=== PATIENT | female | born 1950 | race Caucasian/White ===

== ENCOUNTER → 2018-10-19 15:54 | Outpatient (CLI) | payer MEDICARE, OTHER, SELFPAY ==
--- NOTE | 2018-10-19 16:01 | DI.US.S_ITS ---
PROCEDURE: US ARTERIAL DUPLEX LE RT INDICATIONS: RIGHT CALF PAIN, CLAUDICATION RIGHT LOWER LEG PAIN TECHNIQUE: Color and pulse Doppler interrogation was performed of the right lower extremity arterial system, with image documentation. COMPARISON: None. FINDINGS: Common femoral artery: 84 cm/sec, with triphasic flow. Deep femoral artery: 135 cm/sec, with triphasic flow. Proximal superficial femoral artery: 57 cm/sec, with triphasic flow. Mid superficial femoral artery: 33 cm/sec, with monophasic flow. Distal superficial femoral artery: 347 cm/sec, with monophasic flow. Popliteal artery: 21-38 cm/sec, with monophasic flow. Posterior tibial artery: 27-46 cm/sec, with monophasic flow. Anterior tibial artery/dorsalis pedis: 13-21 cm/sec, with monophasic flow. Hahn-scale imaging description: Mixed soft and hard plaques throughout. There is a short segment of absence of color flow in the distal superficial femoral artery consistent with occlusion. IMPRESSION: 1. Suspect a short segmental occlusion of distal superficial femoral artery. CT or MRI is suggested for further evaluation. 2. Mixed soft and hard plaques throughout right lower extremity arteries. Dictated by: Marcia Hoover M.D. on 10/19/2018 at 23:04 Approved by: Marcia Hoover M.D. on 10/21/2018 at 22:43
== END ==
PROVIDERS: Family Provider Ophthalmology; PCP Family Medicine; Visit Provider Physician Assistant
DX: M79.661 Pain in right lower leg (principal); I70.211 Atherosclerosis of native arteries of extremities with intermittent claudication, right leg
CPT/HCPCS: 93926

== ENCOUNTER → 2019-11-16 11:26 | Outpatient (CLI) | payer MEDICARE, OTHER, SELFPAY ==
--- NOTE | 2019-11-16 | DI.MRI.S_ITS ---
PROCEDURE: MR LUMBAR SPINE WO CON INDICATIONS: Sciatica, right side TECHNIQUE: Noncontrast sagittal T1 spin echo and T2 fast echo, sagittal STIR, axial T1 and T2 fast spin echo through the lumbar spine. In cases with scoliosis, additional coronal T2 fast spin echo may be performed. COMPARISON: None. FINDINGS: Image quality: Excellent. Alignment and Curvature: There is trace anterolisthesis of L4 on L5, L5 on S1. Bone Marrow: Marrow is of normal overall signal. No acute vertebral body compression fractures. Increased T1 and T2 signal is present most prominently within the L3 and L4 vertebral bodies suggestive of hemangiomas. Spinal Cord: Conus medullaris terminates at the L1 level. Visualized cord demonstrates normal signal and size. Paraspinous Soft Tissues: No paravertebral masses. Discs: [id number] desiccation is present throughout the lumbar spine. L1-L2: Minimal disc bulge without spinal stenosis or foraminal narrowing. L2-L3: Mild disc bulge without spinal stenosis or foraminal narrowing. Minimal epidural lipomatosis. L3-L4: Mild disc bulge with minimal spinal stenosis. No foraminal narrowing. Minimal epidural lipomatosis. Mild facet and ligamentum flavum hypertrophy are present. L4-L5: Mild disc bulge with minimal canal narrowing. Minimal to mild right foraminal narrowing with facet and ligamentum flavum hypertrophy. Minimal epidural lipomatosis. L5-S1: Mild disc bulge without spinal stenosis. Mild right foraminal narrowing with facet hypertrophy. IMPRESSION: 1. Multilevel disc bulges. 2. Multilevel minimal spinal stenosis. 3. Multilevel minimal to mild foraminal narrowing most notable at L4-5 and L5-S1. Dictated by: Enedina Ding M.D. on 11/18/2019 at 11:44 Approved by: Enedina Ding M.D. on 11/18/2019 at 12:33
== END ==
PROVIDERS: Family Provider Ophthalmology; PCP Family Medicine; Referring Provider Family Medicine; Visit Provider Family Medicine
DX: M51.16 Intervertebral disc disorders with radiculopathy, lumbar region (principal); M51.17 Intervertebral disc disorders with radiculopathy, lumbosacral region; M48.061 Spinal stenosis, lumbar region without neurogenic claudication; M48.07 Spinal stenosis, lumbosacral region
CPT/HCPCS: 72148

== ENCOUNTER → 2020-08-25 09:48 | Outpatient (CLI) | payer MEDICARE, OTHER, SELFPAY ==
[2020-08-25 20:08] LABS: Add Manual Diff / Slide Review NO; Basophils Absolute Auto 100 /uL (0-100); Basophils Percent Auto 1.1 % (0-2); Eosinophils Absolute Auto 100 /uL (0-450); Eosinophils Percent Auto 1.5 % (2-4); Hematocrit 43.1 % (36-46); Hemoglobin 14.2 g/dL (12.0-16.0); Lymphocytes Absolute Auto 2000 /uL (1100-4500); Lymphocytes Percent Auto 23.4 % (25-40); Mean Corpuscular HGB Conc 32.9 % (30-36); Mean Corpuscular Hemoglobin 28.5 PG (26-34); Mean Corpuscular Volume 86.7 fL (80-100); Monocytes Absolute Auto 500 /uL (0-900); Neutrophils Absolute Auto 5900 /uL (1500-7000); Platelet Count 252 X10^3/uL (150-400); Red Blood Cell Count 4.97 X10^6/uL (4.0-5.2); Red Cell Distribution Width 14.9 % (11.6-14.8); White Blood Cell Count 8.7 X10^3/uL (4.5-11.0)
[2020-08-25 20:24] LABS: Alanine Aminotransferase 11 IU/L (<35); Albumin 4.3 g/dL (3.5-5.0); Albumin Globulin Ratio 1.7 (1.0-2.8); Alkaline Phosphatase 132 U/L (38-126); Aspartate Aminotransferase 19 IU/L (14-36); BUN Creatinine Ratio 17.9 (6-22); Bilirubin Total 0.6 mg/dL (0.2-1.3); Blood Urea Nitrogen 12 mg/dL (7-17); Calcium 9.4 mg/dL (8.4-10.2); Carbon Dioxide 28 mmol/L (22-32); Chloride 102 mmol/L (98-107); Cholesterol 245 mg/dL (140-199); Estimated Glomerular Filt Rate > 60.0 mL/min (>60); Globulin 2.5 g/dL (1.7-4.1); Glucose 100 mg/dL (80-110); HDL Cholesterol 50 mg/dL (40-60); HEMOLYSIS < 15 (0-50); LDL Cholesterol Calculated 170 mg/dL (<100); Potassium 3.9 mmol/L (3.4-5.1); Sodium 137 mmol/L (137-145); Total Protein 6.8 g/dL (6.3-8.2); Triglycerides 125 mg/dL (35-150)
[2020-08-25 21:11] LABS: Vitamin B12 693 pg/mL (239-931)
== END ==
PROVIDERS: Family Provider Ophthalmology; PCP Family Medicine; Referring Provider Physician Assistant; Visit Provider Physician Assistant
DX: E03.9 Hypothyroidism, unspecified (principal); M81.0 Age-related osteoporosis without current pathological fracture; E53.8 Deficiency of other specified B group vitamins; E78.5 Hyperlipidemia, unspecified
CPT/HCPCS: 80053; 80061; 82306; 82607; 84443; 85025